=== PATIENT | female | born 1965 | race Caucasian/White ===

== ENCOUNTER 2017-07-20 22:31 | Emergency (ER) | payer BC, OTHER ==
[2017-07-20 22:38] VITALS: TEMP 98.1; BMI 33.0
--- NOTE | 2017-07-20 23:33 | PDOC ---
History of Present Illness - General Chief Complaint: Pain Stated Complaint: jaw pain Time Seen by Provider: 07/20/17 22:48 History Source: Patient Exam Limitations: No Limitations - History of Present Illness Initial Comments: 07/20/17 23:33 CC: Progressive L anglican, jaw and facial pain Patient is a 52 y.o. female with no significant PMH who presents to our ED tonight c/o a progressively worsening L anglican, facial and jaw pain. Patient states the pain has been present for one month and initially was intermittent, however is now constant. Patient qualifies the pain as stabbing and burning. Patient cannot recall what she was doing when the pain first started but denies any head trauma though patient does note a trip to [place] two months previous in which she had multiple allergic reaction facial swelling and throat closing. Patient also complains of acute onset of unilateral (L) sided blurry vision which she noted while trying to read earlier today. On repeat exam patient also notes an isolated episode (20 minutes) earlier today in which she was having difficulty finding words for approximately 30 minutes which was self- resolving. Patient does note she saw her PCP earlier this week for her pain, who recommended she seek dental evaluation as patient had a crown placed in her L lower jaw two weeks previous. Patient notes her dentist noted no infection but started her on Amoxicillin prophylaxis. Past History - Past Medical History Allergies/Adverse Reactions: Allergies Allergy/AdvReac Type Severity Reaction Status Date / Time No Known Allergies Allergy Verified 07/20/17 22:38 Home Medications: Ambulatory Orders Aspirin [ASA -] 325 mg PO DAILY 09/30/13 - Psycho/Social/Smoking Cessation Hx Anxiety: No Suicidal Ideation: No Smoking Status: No Smoking History: Never smoked Have you smoked in the past 12 months: No Number of Cigarettes Smoked Daily: 0 Information on smoking cessation initiated: No Hx Alcohol Use: Yes Drug/Substance Use Hx: No Review of Systems - Review of Systems Constitutional: No: Chills, Diaphoresis, Malaise, Night Sweats HEENTM: Yes: Eye Pain, Blurred Vision, Double Vision. No: Tinnitus, Hearing Loss Respiratory: No: Cough, Orthopnea, Shortness of Breath, Productive cough Cardiac (ROS): Yes: Chest Pain. No: Irregular Heart Rate, Lightheadedness, Palpitations : No: Burning, Dysuria Musculoskeletal: No: Back Pain, Muscle Pain Neurological: Yes: Headache. No: Numbness, Seizure, Tingling Psychiatric: No: Anxiety, Depression All Other Systems: Reviewed and Negative *Physical Exam - Vital Signs Last Vital Signs Temp Pulse Resp BP Pulse Ox 98.1 F 101 H 20 137/84 100 07/20/17 22:35 07/20/17 22:35 07/20/17 22:35 07/20/17 22:35 07/20/17 22:35 - Physical Exam General Appearance: Yes: Nourished, Appropriately Dressed HEENT: positive: EOMI, MARCUS, TMs Normal, Other (Snellen test in ED: L; R) Cardiovascular: positive: Regular Rhythm, Regular Rate, S1, S2 Gastrointestinal/Abdominal: positive: Flat, Soft Lymphatic: positive: Adenopathy (Submandibular adenopathy B/L) Neurologic: positive: communications technologist II-XII NML intact, Fully Oriented, Alert, Other ( Normal gait, no dysmetria) Medical Decision Making - Medical Decision Making 07/20/17 23:46 Initial differential diagnosis includes Giant Cell Arteritis vs. Intermittent vascular occlusion (ICA) vs. HI (less likely) PLAN 1. ESR, CRP 2. CT Head 3. EKG 4. Troponin 07/21/17 00:21 Patient signed out to Dr. Eduardo Roberts (Resident) Dr. Lipscomb (Attending) *DC/Admit/Observation/Transfer Diagnosis at time of Disposition: Temporal pain - Discharge Dispostion Condition at time of disposition: Fair
--- NOTE | 2017-07-20 23:38 | PDOC ---
Attending Attestation - Resident Resident Name: Florencia Lucia - ED Attending Attestation I have performed the following: I have examined & evaluated the patient, The case was reviewed & discussed with the resident, I agree w/resident's findings & plan, Exceptions are as noted - HPI HPI: 07/20/17 23:33 52y/o F no significant past medical history presents with 1 month of progressive left facial pain. Nonspecific, initially mild and now worsening in severity and duration, ranges from the left yarsanism to the left jaw. Patient recently had left lower molar crown placed 2 weeks ago, saw her dentist again 4 days ago secondary to increasing pain and was started on amoxicillin. Feels as though the pain is unrelated to her dental procedure, denies any other generalized headache or neurological deficits until today. This evening, patient had episode of disorientation/forgetfulness where she describes playing hangman with her daughter and was unable to perform simple functions like spelling "soon" but this resolved after about 15 minutes. Subsequently, patient had episode of monocular left eye diplopia, so she presents for evaluation. Currently asymptomatic, took 2 baby aspirin prior to arrival, no history of similar complaints. - Physicial Exam PE: 07/20/17 23:35 Afebrile. Heart rate normal on exam, patient states she was anxious at triage. I agree with exam as noted, neurologically intact without reproducible dental abnormality or tenderness, no carotid bruit, no reproducible left scalp tenderness - Medical Decision Making 07/20/17 23:36 52-year-old female with nonspecific left facial/temporal pain for 1 month, now with nonspecific associated complaints of questionable disorientation and then monocular diplopia. Most concerning on the differential would be vascular etiologies such as temporal arteritis, ischemia though patient has no risk factors or other neurological complaints. Would be indicative of very proximal obstruction of very localized ischemic areas. Question musculoskeletal with dental etiology, TMJ -a diagnosis of patient has been given in the past. Check labs, including troponin and ESR EKG CT Reassess 07/21/17 02:13 CBC within normal limits, ESR is pending. Chemistries hemolyzed, being repeated. CT without acute pathology. Patient signed out to the overnight ED physician to follow up the results, reassess the patient, and dispo accordingly. Heart Score/ECG Review #1 ECG reviewed & interpreted by me at: 01:05 General ECG Interpretation: Sinus Rhythm, Normal Rate (61), Normal Intervals ( IRBBB, qtc 418), No acute ischemic changes
--- NOTE | 2017-07-21 01:11 | PDOC ---
*Physical Exam - Vital Signs Last Vital Signs Temp Pulse Resp BP Pulse Ox 98.1 F 101 H 20 137/84 100 07/20/17 22:35 07/20/17 22:35 07/20/17 22:35 07/20/17 22:35 07/20/17 22:35 ED Treatment Course - LABORATORY CBC & Chemistry Diagram: 07/21/17 00:39 07/21/17 04:20 - RADIOLOGY Radiograph Interpretation: 07/21/17 04:15 EXAM: CT brain without contrast IMAGES: 72 INDICATION: Blurred vision with facial and temporal pain DATE OF SERVICE: 2017-07-21 01:34:58 COMPARISON: none FINDINGS: The ventricular system is midline and nondilated. The sulcal pattern is normal for the patient's age. There is no bleed, mass, extra-axial fluid collection or mass effect. No skull fracture or skull lesion is identified. The visualized paranasal sinuses and mastoid air cells are clear. IMPRESSION: Normal exam. Progress Note - Progress Note Progress Note: Patient signed out to me by Dr. Lucia Patient c/o left sided facial pain for one month Labs and imaging ordered Review results monitor and reassess patient Medical Decision Making - Medical Decision Making 07/21/17 04:16 CT normal CBC WBC 8.8 K/mm3 (4.0-10.0) 07/21/17 00:39 RBC 5.09 M/mm3 (3.60-5.2) 07/21/17 00:39 Hgb 14.9 GM/dL (10.7-15.3) 07/21/17 00:39 Hct 43.8 % (32.4-45.2) 07/21/17 00:39 MCV 86.0 fl (80-96) 07/21/17 00:39 MCH 29.3 pg (25.7-33.7) 07/21/17 00:39 MCHC 34.0 g/dl (32.0-36.0) 07/21/17 00:39 RDW 13.3 % (11.6-15.6) 07/21/17 00:39 Plt Count 212 K/MM3 (134-434) 07/21/17 00:39 MPV 8.5 fl (7.5-11.1) 07/21/17 00:39 Neutrophils % 57.1 % (42.8-82.8) 07/21/17 00:39 Lymphocytes % 33.0 % (8-40) D 07/21/17 00:39 Monocytes % 6.9 % (3.8-10.2) 07/21/17 00:39 Eosinophils % 2.2 % (0-4.5) 07/21/17 00:39 Basophils % 0.8 % (0-2.0) 07/21/17 00:39 ESR 14 mm/hr (0-30) 07/21/17 00:39 Grossly within normal limits *DC/Admit/Observation/Transfer Diagnosis at time of Disposition: Temporal pain - Discharge Dispostion Disposition: HOME Condition at time of disposition: Fair - Referrals Referrals: Jordin Ramirez MD [Staff Physician] - - Patient Instructions Printed Discharge Instructions: DI for Trigeminal Neuralgia Additional Instructions: Thank you for trusting us with your care today. I hope you were satisfied with the care you received. As we discussed, we did not see anything in the lab tests or imaging we performed today that are concerning. In the emergency department, we do not always find the exact cause of a patient's symptoms. Our goal is to find and treat those problems that are an immediate threat and to adequately manage a patient's other symptoms so they are able to follow up with their primary care physician or specialists who can perform a more thorough evaluation of the problems. I have provided some information on trigeminal neuralgia which is just one of several possible causes of your pain. Your PCP should be able to provide a more precise diagnosis for your face pain and prescribe treatment . I have also provided a referral for a neurologist because the pain you are experiencing appears to be neurological in nature. If you have any difficulties getting an appointment, mention that you were seen in the emergency department and you should be able to get an earlier appointment. As we discussed, you should return to the emergency department if you have any significant worsening of your pain or develop any new or concerning symptoms such as fever or confusion or vision changes. If you are unable to safely drive yourself, you should dial 911 immediately. - Post Discharge Activity - Attestations Physician Attestion: 07/21/17 06:05 I, Dr. Eduardo Roberts, attest that this document has been prepared under my direction and personally reviewed by me in its entirety. I further attest, that it accurately reflects all work, treatment, procedures and medical decision -making performed by me.
[2017-07-21 01:12] LABS: BASOPHIL 0.8 % (0-2.0); EOSINOPHIL 2.2 % (0-4.5); MCH 29.3 pg (25.7-33.7); MEAN PLT VOLUME 8.5 fl (7.5-11.1); NEUTROPHILS 57.1 % (42.8-82.8); PLATELET COUNT 212 K/MM3 (134-434); RDW 13.3 % (11.6-15.6); WHITE BLOOD COUNT 8.8 K/mm3 (4.0-10.0)
[2017-07-21 02:48] LABS: ERYTHROCYTE SEDIMENTATION RATE 14 mm/hr (0-30)
[2017-07-21 05:02] LABS: ALBUMIN 3.3 g/dl (3.4-5.0); ALK PHOS 121 U/L (45-117); ANION GAP 5 (8-16); BILIRUBIN,TOTAL 0.3 mg/dL (0.2-1.0); CALCIUM 7.9 mg/dL (8.5-10.1); CO2 30 mmol/L (21-32); CREATININE 0.6 mg/dL (0.55-1.02); GLUCOSE,RANDOM 99 mg/dL (74-106); SGOT/AST 21 U/L (15-37); SGPT/ALT 35 U/L (12-78); TOT PROT 6.6 g/dl (6.4-8.2)
[2017-07-21 05:03] LABS: TROPONIN I 0.03 ng/ml (0.00-0.05)
[2017-07-21 06:18] VITALS: BP 130/65; PULSE 65
--- NOTE | 2017-07-21 20:29 | EKG ---
Test Reason : Blood Pressure : / mmHG Vent. Rate : 061 BPM Atrial Rate : 061 BPM P-R Int : 130 ms QRS Dur : 104 ms QT Int : 416 ms P-R-T Axes : 028 006 030 degrees QTc Int : 418 ms NORMAL SINUS RHYTHM INCOMPLETE RIGHT BUNDLE BRANCH BLOCK BORDERLINE ECG WHEN COMPARED WITH ECG OF 30-SEP-2013 14:12, NO SIGNIFICANT CHANGE WAS FOUND Confirmed by CINDY VARELA MD ([id number]) on 07/21/2017 8:28:45 PM Referred By: Confirmed By:CINDY VARELA MD
== END 2017-07-21 06:18 | disposition home or self-care (01) ==
LOC: SUPCPDRO 22:31 → JER 22:31
DX: R51 Headache (principal)
CPT/HCPCS: 36415; 70450-TC; 80053; 84484; 85025; 85651; 86140; 93005; 93010; 99281-25

== ENCOUNTER 2019-06-22 21:20 | Emergency (ER) | payer BC ==
[2019-06-22 21:29] VITALS: TEMP 98.6; BMI 34.5
--- NOTE | 2019-06-22 21:29 | PDOC ---
Rapid Medical Evaluation Chief Complaint: Pain Time Seen by Provider: 06/22/19 21:25 Medical Evaluation: Allergies Allergy/AdvReac Type Severity Reaction Status Date / Time No Known Allergies Allergy Verified 07/20/17 22:38 06/22/19 21:26 I have performed a brief in-person evaluation of this patient. The patient presents with a chief complaint of: intermittent left side chest pain with chest tightness for a week. Report sharp pain to left upper chest which travels to left side of neck. Denies SOB, palpitations, sweats, N/V, dizziness, [place] Pertinent physical exam findings: A&O x 3 in NAD. heart RRR. lungs CTAB I have ordered the following: EKG, cbc,cmp, cardiac profile The patient will proceed to the ED for further evaluation. Discharge Disposition - Diagnosis Chest pain Qualifiers: Chest pain type: unspecified Qualified Code(s): R07.9 - Chest pain, unspecified - Discharge Dispostion Condition at time of disposition: Stable - Referrals - Patient Instructions - Post Discharge Activity
[2019-06-22 23:43] LABS: BASO % 0.8 % (0-2.0); HEMATOCRIT 42.8 % (32.4-45.2); HEMOGLOBIN 14.7 GM/dL (10.7-15.3); LYMPH % 29.5 % (8-40); MCH 28.8 pg (25.7-33.7); MCHC 34.4 g/dl (32.0-36.0); MEAN CELL VOLUME 83.9 fl (80-96); MEAN PLT VOLUME 8.3 fl (7.5-11.1); MONO % 7.8 % (3.8-10.2); NEUT % 59.9 % (42.8-82.8); PLATELET COUNT 228 K/MM3 (134-434); RBC 5.09 M/mm3 (3.60-5.2); RDW 13.1 % (11.6-15.6); WHITE BLOOD COUNT 7.5 K/mm3 (4.0-10.0)
[2019-06-22 23:45] LABS: INR 0.98 (0.83-1.09); PROTHROMBIN TIME (PATIENT) 11.6 SEC (9.7-13.0)
[2019-06-22 23:48] LABS: ACTIVATED PTT 37.3 SECONDS (25.2-36.5)
[2019-06-22 23:59] LABS: BILIRUBIN,TOTAL 0.4 mg/dL (0.2-1); BLOOD UREA NITROGEN 22.1 mg/dL (7-18); CALCIUM 9.1 mg/dL (8.5-10.1); POTASSIUM 3.9 mmol/L (3.5-5.1); TOT PROT 7.6 g/dl (6.4-8.2)
[2019-06-23] MEDS ORDERED: ACETAMINOPHEN 500 MG TABLET (FP) PO ONE (00:16)
--- NOTE | 2019-06-23 00:21 | PDOC ---
History of Present Illness - General Chief Complaint: Pain Stated Complaint: CHEST PAIN Time Seen by Provider: 06/22/19 21:25 History Source: Patient Exam Limitations: No Limitations - History of Present Illness Initial Comments: 06/23/19 00:17 54yo F with PMH of Trigeminal Neuralgia presenting to ED with complaints of intermittent L sided chest pain x1week getting worse. Pt states that she feels a discomfort substernally, feels like a sharp, burning pain which radiates to the L side of her chest and up the L side of the neck. The pain comes and goes, no triggering or alleviating factors. She has not had a pain like this before. She states she feels a sharp pain when she inspires. Also endorses occasional palpitations. Denies cough, sob, back pain, injury, fevers, chills, abdominal pain, n/v/d, dizziness, syncope. No family history of MT. She recently returned from [place] 2w-3w ago. Denies leg pain/swelling. PMD: [place] PMH: see hpi PSH: partial hysterectomy Meds: none Allergies: nkda Social: denies Past History - Past Medical History Allergies/Adverse Reactions: Allergies Allergy/AdvReac Type Severity Reaction Status Date / Time No Known Allergies Allergy Verified 06/22/19 21:29 Home Medications: Ambulatory Orders Aspirin [ASA -] 325 mg PO DAILY 09/30/13 COPD: No - Suicide/Smoking/Psychosocial Hx Smoking Status: No Smoking History: Never smoked Have you smoked in the past 12 months: No Number of Cigarettes Smoked Daily: 0 Hx Alcohol Use: Yes Drug/Substance Use Hx: No Review of Systems - Review of Systems Constitutional: No: Chills, Fever, Weakness HEENTM: No: Symptoms Reported Respiratory: No: Cough, Shortness of Breath, SOB with Exertion, SOB at Rest Cardiac (ROS): Yes: See HPI, Chest Pain, Palpitations. No: Lightheadedness, Syncope ABD/GI: No: Symptoms Reported : No: Symptoms Reported Musculoskeletal: No: Symptoms Reported Integumentary: No: Symptoms Reported Neurological: No: Symptoms reported *Physical Exam - Vital Signs Last Vital Signs Temp Pulse Resp BP Pulse Ox 98.6 F 93 H 18 108/66 99 06/22/19 21:25 06/22/19 21:25 06/22/19 21:25 06/22/19 21:25 06/22/19 21:25 - Physical Exam General Appearance: Yes: Nourished, Appropriately Dressed. No: Apparent Distress HEENT: positive: EOMI, MARCUS, Normal ENT Inspection Neck: positive: Trachea midline, Supple. negative: Lymphadenopathy (R), Lymphadenopathy (L) Respiratory/Chest: positive: Lungs Clear, Normal Breath Sounds. negative: Chest Tender, Accessory Muscle Use, Labored Respiration, Crackles, Rhonchi, Wheezing Cardiovascular: positive: Regular Rhythm, S1, S2, Tachycardia. negative: Edema , JVD, Murmur Vascular Pulses: Dorsalis-Pedis (R): 2+, Doralis-Pedis (L): 2+ Gastrointestinal/Abdominal: positive: Normal Bowel Sounds, Soft. negative: Tender Musculoskeletal: negative: CVA Tenderness Extremity: positive: Normal Capillary Refill, Pelvis Stable. negative: Swelling , Calf Tenderness Integumentary: positive: Normal Color, Dry, Warm Neurologic: positive: paint maker II-XII NML intact, Fully Oriented, Alert, Normal Mood/ Affect, Normal Response, Motor Strength /5 ED Treatment Course - LABORATORY CBC & Chemistry Diagram: 06/22/19 23:20 06/22/19 23:20 - ADDITIONAL ORDERS Additional order review: Laboratory Results 06/22/19 06/22/19 06/22/19 23:20 23:20 23:20 PT with INR 11.60 INR 0.98 PTT (Actin FS) 37.3 H Sodium 144 Potassium 3.9 Chloride 106 Carbon Dioxide 33 H Anion Gap 6 L BUN 22.1 H Creatinine 1.0 Est GFR (CKD-EPI)AfAm 73.97 Est GFR (CKD-EPI)NonAf 63.82 Random Glucose 102 Calcium 9.1 Total Bilirubin 0.4 AST 21 ALT 34 Alkaline Phosphatase 154 H Creatine Kinase 122 Troponin I 0.02 Total Protein 7.6 Albumin 4.0 06/22/19 23:20 RBC 5.09 MCV 83.9 MCHC 34.4 RDW 13.1 MPV 8.3 Neutrophils % 59.9 Lymphocytes % 29.5 Monocytes % 7.8 Eosinophils % 2.0 Basophils % 0.8 - RADIOLOGY Radiology Studies Ordered: Category Date Time Status CHEST PA & LAT [RAD] Stat Radiology 06/22/19 23:30 Ordered Medical Decision Making - Medical Decision Making 06/23/19 00:21 54yo F with PMH of Trigeminal Neuralgia presenting to ED with complaints of intermittent L sided chest pain x1week getting worse. Pt states that she feels a discomfort substernally, feels like a sharp, burning pain which radiates to the L side of her chest and up the L side of the neck. The pain comes and goes, no triggering or alleviating factors. She has not had a pain like this before. She states she feels a sharp pain when she inspires. Also endorses occasional palpitations. Denies cough, sob, back pain, injury, fevers, chills, abdominal pain, n/v/d, dizziness, syncope. No family history of MT. She recently returned from [place] 2w-3w ago. Denies leg pain/swelling. Vitals; tachycardia PE: benign. lungs cta, normal heart sounds, pulses palpable, no chest wall tenderness ddx includes but not limited to pe, scs, pna, ptx, effusion, msk, electrolyte/ metabolic abnormality -labs ordered by rme, added d-dimer -ekg: sinus tachycardia at 106, pr 154, jqtc 470. no agata or depressions. possible lae, incomplete rbbb. lvh. -tylenol for pain. iv fluids trop negative, all labs wnl. elevated d-dimer ordered cta, cancelled cxr cta: no pe or lung pathology. pt feeling better. will order 2nd trop and dispo 06/23/19 03:41 2nd trop negative. rpt vitals: hr 94, bp 126/75. pt safe for dc home. given return precautions. has pmd f/u and given cardiology referral. *DC/Admit/Observation/Transfer Diagnosis at time of Disposition: Chest pain Qualifiers: Chest pain type: unspecified Qualified Code(s): R07.9 - Chest pain, unspecified - Discharge Dispostion Disposition: HOME Condition at time of disposition: Improved Decision to Admit order: No - Referrals Referrals: Anna Marie Calixto MD [Primary Care Provider] - Shadi Acosta MD [Staff Physician] - - Patient Instructions Printed Discharge Instructions: DI for Chest Pain Additional Instructions: You were seen in the emergency room today for chest pain. Your blood tests were normal and the CT scan is normal. I do not know the exact cause of your pain but it could be musculoskeletal. You can take Tylenol and ibuprofen for the pain as needed. I recommend making an appointment with a construction controller. Referral information is below. You can see your own construction controller or get a referral by your primary care doctor. Please make sure to see your doctor this week regarding this ED visit. Come back to the emergency room for worsening pain, sob, cough, fever or if any new concerning symptom develops. Thank you - Post Discharge Activity
[2019-06-23] MEDS ORDERED: SODIUM CHLORIDE 1,000 ML IV STA (00:32)
[2019-06-23] MEDS ORDERED: ACETAMINOPHEN 325 MG TABLET (FP) ONE (00:54)
--- NOTE | 2019-06-23 01:33 | PDOC ---
Documentation entered by Manny Rodriguez SCRIBE, acting as scribe for Willa Wilson MD. Willa Wilson MD: This documentation has been prepared by the Michael fermin Elijah, SCRIBE, under my direction and personally reviewed by me in its entirety. I confirm that the documentation accurately reflects all work, treatment, procedures, and medical decision making performed by me. Attending Attestation - Resident Resident Name: EdithMary - ED Attending Attestation I have performed the following: I have examined & evaluated the patient, The case was reviewed & discussed with the resident, I agree w/resident's findings & plan - HPI HPI: 06/23/19 01:04 Patient is a 54 year old female with a significant past medical history of Trigeminal Neuralgia who presents to the ED with intermittent L-Sided Chest pain that has been worsening over x1 week. Patient reports that she has sharp pain over her L-Breast that radiates up her neck to the back of her ear. Patient also reports some pressure and burning in the center of her chest. The patient notes the pain worsens with deep breath and experienced one moment where she was too tired to move when she returned home with groceries. Denies fever, chill, and recent injury. Allergies: NKA PCP: Dr. Bearden - Physicial Exam PE: 06/23/19 01:13 GENERAL: Awake, alert, and fully oriented, in no acute distress HEAD: No signs of trauma EYES: PERRLA, EOMI, sclera anicteric, conjunctiva clear ENT: Auricles normal inspection, hearing grossly normal, nares patent, oropharynx clear without exudates. Moist mucosa NECK: Normal ROM, supple, no lymphadenopathy, JVD, or masses LUNGS: Breath sounds equal, clear to auscultation bilaterally. No wheezes, and no crackles HEART: +Tachycardic. Normal S1 and S2, no murmurs, rubs or gallops ABDOMEN: Soft, nontender, normoactive bowel sounds. No guarding, no rebound. No masses EXTREMITIES: Normal range of motion, no edema. No clubbing or cyanosis. No cords, erythema, or tenderness NEUROLOGICAL: Cranial nerves II through XII grossly intact. Normal speech, normal gait SKIN: Warm, Dry, normal turgor, no rashes or lesions noted. - Medical Decision Making 06/23/19 01:32 eKG is sinus tachycardia at 106, incomplete right bundle branch block LVH pt has had left sided chest pain . neg troponin, d dimer>2000 , cta chest pending 06/23/19 01:50 06/23/19 02:15 cta chest is NEGATIVE for PE,dissection or aneurysm if 2rd trop negative , d/c home
[2019-06-23 03:54] VITALS: BP 126/75; PULSE 94
--- NOTE | 2019-06-23 09:28 | EKG ---
Test Reason : Blood Pressure : / mmHG Vent. Rate : 107 BPM Atrial Rate : 107 BPM P-R Int : 140 ms QRS Dur : 096 ms QT Int : 342 ms P-R-T Axes : 000 -26 148 degrees QTc Int : 456 ms POOR DATA QUALITY, INTERPRETATION MAY BE ADVERSELY AFFECTED SINUS TACHYCARDIA INCOMPLETE RIGHT BUNDLE BRANCH BLOCK NONSPECIFIC T WAVE ABNORMALITY ABNORMAL ECG Confirmed by Gilson Ulloa MD ([id number]) on 06/23/2019 9:28:19 AM Referred By: Confirmed By:Gilson Ulloa MD
--- NOTE | 2019-06-24 14:08 | EKG ---
Test Reason : Blood Pressure : / mmHG Vent. Rate : 106 BPM Atrial Rate : 106 BPM P-R Int : 154 ms QRS Dur : 102 ms QT Int : 354 ms P-R-T Axes : 045 001 046 degrees QTc Int : 470 ms SINUS TACHYCARDIA POSSIBLE LEFT ATRIAL ENLARGEMENT INCOMPLETE RIGHT BUNDLE BRANCH BLOCK LEFT VENTRICULAR HYPERTROPHY ABNORMAL ECG WHEN COMPARED WITH ECG OF 22-JUN-2019 21:34, NONSPECIFIC T WAVE ABNORMALITY NO LONGER EVIDENT IN INFERIOR LEADS Confirmed by SHANTAL PADGETT, [place] ([id number]) on 06/24/2019 2:08:00 PM Referred By: Confirmed By:[place] MURGUIA MD
== END 2019-06-23 03:45 | disposition home or self-care (01) ==
LOC: JER 21:20
PROC: 3E0337Z Introduction of Electrolytic and Water Balance Substance into Peripheral Vein, Percutaneous Approach (ICD-10-PCS; principal; 2019-06-22)
DX: R07.9 Chest pain, unspecified (principal)
CPT/HCPCS: 36415; 71275-TC; 80053; 82550; 84484; 85025; 85379; 85610; 85730; 93005; 93010; 99283-25; J7030

== ENCOUNTER 2021-07-12 18:39 | Emergency (ER) | payer BC ==
[2021-07-12 18:55] VITALS: BP 123/76; PULSE 106; TEMP 98; BMI 34.0
== END 2021-07-12 20:21 | disposition home or self-care (01) ==
LOC: JER 18:39
DX: U07.1 COVID-19 (principal)
CPT/HCPCS: 71046-TC-FY; 99283-25

== ENCOUNTER 2021-08-26 19:09 | Emergency (ER) | payer BC ==
[2021-08-26 19:41] VITALS: TEMP 98.7; BMI 33.8
[2021-08-26] MEDS ORDERED: KETOROLAC TROMETHAMINE 30 MG/1 ML VIAL IVPUSH ONE (20:15)
[2021-08-26] MEDS ORDERED: ACETAMINOPHEN 1000 MG/100 ML VIAL (NON FORMULARY) IVPB ONE (20:15)
[2021-08-26] MEDS ORDERED: ACETAMINOPHEN INJECTION 100 ML IVPB ONE (20:18)
[2021-08-26] MEDS ORDERED: KETOROLAC TROMETHAMINE 30 MG/1 ML VIAL ONE (20:19)
[2021-08-26] MEDS ORDERED: METOCLOPRAMIDE HCL INJECTION 10 MG/2 ML VIAL IVPB ONE (20:35)
[2021-08-26] MEDS ORDERED: PROCHLORPERAZINE INJECTION 10 MG/2 ML VIAL IVPB ONE (20:35)
[2021-08-26] MEDS ORDERED: SODIUM CHLORIDE 0.9% 1000 ML INFUS.BAG IV ONE (20:36)
[2021-08-26] MEDS ORDERED: PROCHLORPERAZINE INJECTION 10 MG/2 ML VIAL ONE (20:40)
[2021-08-26] MEDS ORDERED: METOCLOPRAMIDE HCL INJECTION 10 MG/2 ML VIAL ONE (20:40)
[2021-08-26 21:16] LABS: HEMATOCRIT 43.2 % (32.4-45.2); HEMOGLOBIN 14.9 GM/dL (10.7-15.3); LYMPH % 31.2 % (8-40); MCH 29.7 pg (25.7-33.7); MCHC 34.6 g/dl (32.0-36.0); MEAN CELL VOLUME 85.7 fl (80-96); MEAN PLT VOLUME 9.1 fl (7.5-11.1); NEUT % 58.3 % (42.8-82.8); PLATELET COUNT 255 10^3/uL (134-434); RBC 5.03 M/mm3 (3.60-5.2); RDW 13.6 % (11.6-15.6); WHITE BLOOD COUNT 8.6 K/mm3 (4.0-10.0)
[2021-08-26 21:17] LABS: EOS % 1.9 % (0-4.5); MONO % 7.6 % (3.8-10.2)
[2021-08-26 21:25] LABS: ALBUMIN 3.8 g/dl (3.4-5.0); BILIRUBIN,TOTAL 0.3 mg/dL (0.2-1); BLOOD UREA NITROGEN 12.2 mg/dL (7-18); CHLORIDE 106 mmol/L (98-107); CO2 26 mmol/L (21-32); CREATININE 1.3 mg/dL (0.55-1.3); GLUCOSE,RANDOM 83 mg/dL (74-106); SODIUM 137 mmol/L (136-145); TOT PROT 8.4 g/dl (6.4-8.2)
[2021-08-26 21:26] LABS: ALK PHOS 146 U/L (45-117); SGOT/AST 78 U/L (15-37); SGPT/ALT 37 U/L (13-61)
[2021-08-26 21:27] LABS: ANION GAP 5 MMOL/L (8-16)
[2021-08-27 01:32] VITALS: BP 101/70; PULSE 60
== END 2021-08-27 01:33 | disposition home or self-care (01) ==
LOC: JER 19:09
PROC: 3E0333Z Introduction of Anti-inflammatory into Peripheral Vein, Percutaneous Approach (ICD-10-PCS; principal; 2021-08-26)
PROC: 3E0333Z Introduction of Anti-inflammatory into Peripheral Vein, Percutaneous Approach (ICD-10-PCS; 2021-08-26)
PROC: 3E033GC Introduction of Other Therapeutic Substance into Peripheral Vein, Percutaneous Approach (ICD-10-PCS; 2021-08-26)
PROC: 3E033GC Introduction of Other Therapeutic Substance into Peripheral Vein, Percutaneous Approach (ICD-10-PCS; 2021-08-26)
DX: R51.9 Headache, unspecified (principal)
CPT/HCPCS: 36415; 70450-TC; 71045-TC-FY; 71275-TC; 80053; 84132; 84484; 85025; 85379; 85651; 86140; 93005; 93010; 99285-25; J0131; Q9967

== ENCOUNTER 2023-01-04 14:45 | Emergency (ER) | payer BC ==
[2023-01-04 14:55] VITALS: BMI 34.5
[2023-01-04] MEDS ORDERED: ASPIRIN COATED 81 MG TABLET.EC PO ONE (15:52)
[2023-01-04] MEDS ORDERED: ASPIRIN COATED 81 MG TABLET.EC ONE ×2 (15:57→17:40)
[2023-01-04 16:15] LABS: BASO % 1.1 % (0-2.0); EOS % 1.1 % (0-4.5); HEMATOCRIT 44.7 % (32.4-45.2); HEMOGLOBIN 15.5 GM/dL (10.7-15.3); LYMPH % 32.7 % (8-40); MCH 29.3 pg (25.7-33.7); MCHC 34.6 g/dl (32.0-36.0); MEAN CELL VOLUME 84.7 fl (80-96); MONO % 5.8 % (3.8-10.2); NEUT % 59.3 % (42.8-82.8); PLATELET COUNT 197 10^3/uL (134-434); RBC 5.28 M/mm3 (3.60-5.2); WHITE BLOOD COUNT 6.8 K/mm3 (4.0-10.0)
[2023-01-04 16:37] LABS: BLOOD UREA NITROGEN 11.4 mg/dL (7-18); CALCIUM 9.1 mg/dL (8.5-10.1); MAGNESIUM 2.2 mg/dL (1.8-2.4)
[2023-01-04 16:38] LABS: ALBUMIN 3.9 g/dl (3.4-5.0)
[2023-01-04 16:40] LABS: CREATININE 0.8 mg/dL (0.55-1.3); PHOSPHOROUS 2.8 mg/dL (2.5-4.9)
[2023-01-04 16:42] LABS: BILIRUBIN,TOTAL 0.6 mg/dL (0.2-1); TOT PROT 7.3 g/dl (6.4-8.2)
[2023-01-04] MEDS ORDERED: PROCHLORPERAZINE INJECTION 10 MG/2 ML VIAL IVPB ONE (17:14)
[2023-01-04] MEDS ORDERED: SODIUM CHLORIDE 0.9% 500 ML INFUS.BAG IV ONE (17:33)
[2023-01-04] MEDS ORDERED: PROCHLORPERAZINE INJECTION 10 MG/2 ML VIAL ONE (17:36)
[2023-01-04 20:42] VITALS: BP 128/60; PULSE 78; RESP 18; TEMP 98.1
== END 2023-01-04 20:42 | disposition home or self-care (01) ==
LOC: JER 14:45
PROC: 3E033GC Introduction of Other Therapeutic Substance into Peripheral Vein, Percutaneous Approach (ICD-10-PCS; principal; 2023-01-04)
DX: R07.9 Chest pain, unspecified (principal); R68.84 Jaw pain
CPT/HCPCS: 36415; 70450-TC; 70496-TC; 70498-TC; 71046-TC-FY; 80053; 83735; 84100; 84484; 85025; 85651; 86140; 93005; 93010; 99285-25